=== PATIENT | male | born 1995 | race American Indian/Alaskan Native ===

== ENCOUNTER 2018-02-25 22:10 | Emergency (ER) | payer OTHER, BC ==
[2018-02-25] MEDS ORDERED: TYLENOL ONE (22:43)
[2018-02-25] MEDS ORDERED: TYLENOL PO ONE (22:45)
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
[2018-02-26] MEDS ORDERED: MOTRIN PO ONE (07:14)
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
[2018-02-26 08:01] VITALS: BP 130/70
== END 2018-02-26 08:00 | disposition home or self-care (01) ==
LOC: ED 22:10
DX: S13.4XXA Sprain of ligaments of cervical spine, initial encounter (principal); S00.83XA Contusion of other part of head, initial encounter; V89.2XXA Person injured in unspecified motor-vehicle accident, traffic, initial encounter; Y93.89 Activity, other specified; Y92.89 Other specified places as the place of occurrence of the external cause; Y99.8 Other external cause status
CPT/HCPCS: 70450; 72040